=== PATIENT | male | born 1945 | race Two or more races ===

== ENCOUNTER 2017-11-14 18:26 | Inpatient (IN) | payer MEDICARE ==
[~2017-11-14] VITALS: Ht 167.6 cm; Wt 99.8 kg
[~2017-11-14 18:26] MED LIST: CEFAZOLIN 1 G VIAL IV ONE; DEXAMETHASONE SOD PHOSPHATE 4 MG INJ IV ONE; FENTANYL IV ONE; GLYCOPYRROLATE 0.2 MG/ML VIAL IV ONE; LIDOCAINE-MPF 2% 5 ML VIAL MC ONE; NEOSTIGMINE METHYLSULFATE 10 MG/10 ML VIAL IV ONE; ONDANSETRON 4 MG/2 ML VIAL IV ONE; PROPOFOL 1,000 MG/100 ML BOTTLE IV ONE; [UNRECOGNIZED DRUG - OTHER] MC ONE
[2017-11-14] MEDS ORDERED: PANTOPRAZOLE SODIUM 40 MG VIAL IV ONE (18:44)
[2017-11-14] MEDS ORDERED: MORPHINE SULFATE 2 MG/1 ML DISP.SYRIN IV ONE ×2 (18:45→20:45)
[2017-11-14] MEDS ORDERED: ONDANSETRON IV *ER 4 MG/2 ML VIAL IV ONE (18:45)
[2017-11-14] MEDS ORDERED: IV NS 1000 ML 1,000 ML IV ONE (18:45)
[2017-11-14] MEDS ORDERED: PANTOPRAZOLE SODIUM 40 MG VIAL ONE (19:05)
[2017-11-14] MEDS ORDERED: ONDANSETRON 4 MG/2 ML VIAL ONE (19:05)
[2017-11-14] MEDS ORDERED: MORPHINE SULFATE 2 MG/1 ML DISP.SYRIN ONE ×2 (19:06→20:54)
--- NOTE | 2017-11-14 19:10 | NUR ---
BIB [facility] for trip and fall. Per [facility] he tripped on a parking block. Per [employer] and per pt and family, pt is intoxicated... He is on a monitor. IV placed, labs drawn.
[2017-11-14 19:14] LABS: BASOPHILS % (AUTO) 0.6 % (0.0-2.0); EOSINOPHILS # (AUTO) 0.1 K/uL (0.0-0.7); EOSINOPHILS % (AUTO) 1.4 % (0.0-7.0); HEMATOCRIT 43.8 % (36.7-47.1); LYMPHOCYTES # (AUTO) 1.7 K/uL (20.0-40.0); LYMPHOCYTES % (AUTO) 25.5 % (20.5-51.5); MEAN CORPUSCULAR HEMOGLOBIN 34.6 uug (23.8-33.4); MEAN CORPUSCULAR HGB CONC 34 g/dL (32.5-36.3); MONOCYTES # (AUTO) 0.5 K/uL (2.0-10.0); MONOCYTES % (AUTO) 7.2 % (0.0-11.0); NEUTROPHILS # (AUTO) 4.5 K/uL (1.8-8.9); NEUTROPHILS % (AUTO) 65.3 % (38.5-71.5); PLATELET COUNT (AUTO) 223 K/uL (152-348); RED BLOOD CELL COUNT(AUTO) 4.34 MIL/uL (4.06-5.63); WHITE BLOOD COUNT (AUTO) 6.8 K/uL (3.6-10.2)
--- NOTE | 2017-11-14 19:14 | NUR ---
REPORT TAKEN FROM CANDIE MENDEZ. ASSUMING PT CARE AT THIS TIME.
--- NOTE | 2017-11-14 19:14 | NUR ---
handoff report given Idania SCHREIBER
[2017-11-14 19:21] LABS: CARBON DIOXIDE 22 mmol/L (21-32); CHLORIDE 103 mmol/L (98-107); CREATININE 0.7 mg/dL (0.6-1.3); GLUCOSE 121 mg/dL (74-106); UREA NITROGEN, BLOOD 8 mg/dL (7-18)
[2017-11-14 19:27] LABS: ALANINE AMINOTRANSFERASE 28 U/L (16-63); ALKALINE PHOSPHATASE 60 U/L (50-136); ASPARTATE AMINOTRANSFERASE 29 U/L (15-37); BILIRUBIN,TOTAL 0.3 mg/dL (0.2-1.0); ETHANOL 230 MG/DL (0-0); TOTAL PROTEIN, SERUM 7.3 g/dL (6.4-8.2)
[2017-11-14 19:28] LABS: CREATINE KINASE, TOTAL 81 U/L (39-308)
--- NOTE | 2017-11-14 20:20 | NUR ---
Called Dr Gurpreet niño MD for consult as requested by Dr Thomson. Waiting for return call back
--- NOTE | 2017-11-14 20:49 | NUR ---
No call back from Dr Gurpreet espinoza MD. Repaged. Waiting for call back
[2017-11-14] MEDS ORDERED: IV NS 1000 ML 1,000 ML IV PRN (21:00)
--- NOTE | 2017-11-14 21:23 | NUR ---
DR IZAGUIRRE SPEAKING W/ PASQUAL REGARDING PT ADMISSION.
--- NOTE | 2017-11-14 21:30 | NUR ---
REPORT GIVEN TO CANDIE HERNANDEZ.
[2017-11-14] MEDS ORDERED: MAGNESIUM HYDROXIDE 30 ML LIQUID UDC PO PRN (22:00)
[2017-11-14] MEDS ORDERED: Z GUARD REMEDY PASTE 57 GM TUBE TOP PRN (22:00)
[2017-11-14] MEDS ORDERED: ACETAMINOPHEN 325 MG TABLET PO PRN (22:00)
[2017-11-14] MEDS ORDERED: ONDANSETRON 4 MG/2 ML VIAL IV PRN (22:00)
[2017-11-14 22:10] VITALS: BP 173/88
--- NOTE | 2017-11-14 22:10 | NUR ---
Pt. admitted to tele, under care of Dr. Garg Belongs List completed
[2017-11-14 22:13] LABS: *BILIRUBIN,URIN NEGATIVE (NEGATIVE); *BLOOD, URINE NEGATIVE (NEGATIVE); *CLARITY,URINE CLEAR (CLEAR); *COLOR,URINE YELLOW (YELLOW); *KETONES,URINE NEGATIVE (NEGATIVE); *PROTEIN,URINE NEGATIVE (NEGATIVE); *UROBILINOGEN,URINE 0.2 E.U./dl (NORMAL); LEUKOCYTE ESTERASE ,URINE NEGATIVE (NEGATIVE); NITRITE, URINE NEGATIVE (NEGATIVE); UGLUCOSE NEGATIVE (NEGATIVE)
--- NOTE | 2017-11-14 22:15 | NUR ---
Patient arrived to unit as a new Tele admit with Dx of Right Ankle Fx under the care of Willie Murphy. Patient arrived in stable condition with no acute distress noted. On Tele monitor currently Sinus Rhythm HR of 92. Daughter with patient at the bedside. BP slightly elevated upon arrival at 173/88 due to RLE pain. Will reassess BP through shift. MATERNITY NURSE Yaya aware. Pertinent assessment completed upon arrival. Noted with right hand IV 22G running with IV NS at 75cc/hr. No signs of infiltration or swelling noted at IV Site. RLE is currently wrapped. Dressing is intact. Elevated RLE with pillow. Patient complaining of pain. Will medicate per MD order & reassess. Call light within reach of patient. Will continue to monitor through shift.
[2017-11-14 22:21] LABS: RBC,URINE 0-3 /HPF (0-3); SQUAMOUS EPITHELIAL CELL,UR FEW /HPF (NONE SEEN); WBC,URINE NONE SEEN /HPF (0-3)
[2017-11-14] MEDS ORDERED: hydrALAZINE HCL 20 MG/1 ML VIAL IV PRN (22:45)
[2017-11-14] MEDS: MORPHINE SULFATE 2 MG/1 ML DISP.SYRIN IV PRN (23:19)
[2017-11-15 00:02] VITALS: BP 174/84
[2017-11-15] MEDS: IV NS 1000 ML 1,000 ML IV PRN ×2 (00:04→08:16)
[2017-11-15] MEDS: MORPHINE SULFATE 2 MG/1 ML DISP.SYRIN IV PRN ×2 (03:27→08:16)
[2017-11-15 04:00] VITALS: BP 165/81
[2017-11-15 06:01] LABS: BASOPHILS # (AUTO) 0.1 K/uL (0.0-8.0); EOSINOPHILS # (AUTO) 0.1 K/uL (0.0-0.7); EOSINOPHILS % (AUTO) 0.8 % (0.0-7.0); HEMATOCRIT 42.3 % (36.7-47.1); HEMOGLOBIN 14.5 g/dL (12.5-16.3); LYMPHOCYTES # (AUTO) 2.1 K/uL (20.0-40.0); LYMPHOCYTES % (AUTO) 26.1 % (20.5-51.5); MEAN CORPUSCULAR HEMOGLOBIN 34.8 uug (23.8-33.4); MEAN CORPUSCULAR HGB CONC 34 g/dL (32.5-36.3); MEAN CORPUSCULAR VOLUME 101.1 fL (73.0-96.2); MONOCYTES # (AUTO) 0.7 K/uL (2.0-10.0); MONOCYTES % (AUTO) 8.2 % (0.0-11.0); NEUTROPHILS # (AUTO) 5.1 K/uL (1.8-8.9); NEUTROPHILS % (AUTO) 63.9 % (38.5-71.5); PLATELET COUNT (AUTO) 228 K/uL (152-348); RED BLOOD CELL COUNT(AUTO) 4.19 MIL/uL (4.06-5.63)
[2017-11-15 06:26] LABS: CARBON DIOXIDE 24 mmol/L (21-32); CHLORIDE 103 mmol/L (98-107); CHOLESTEROL 169 mg/dL (<200); CREATININE 0.7 mg/dL (0.6-1.3); GLUCOSE 97 mg/dL (74-106); HDL CHOLESTEROL 65 mg/dL (40-60); MAGNESIUM 1.9 mg/dL (1.8-2.4); PHOSPHOROUS 3.1 mg/dL (2.5-4.9); POTASSIUM 4.2 mmol/L (3.5-5.1); TRIGLYCERIDES 71 MG/DL (30-150); UREA NITROGEN, BLOOD 5 mg/dL (7-18)
[2017-11-15] MEDS ORDERED: ENALAPRILAT DIHYDRATE 1.25 MG/1 ML VIAL IV PRN ×2 (06:30→07:45)
--- NOTE | 2017-11-15 06:41 | NUR ---
BP of patient continued to be elevated 178/85 with a HR of 86. Alexys Jin MD because Hydralazine PRN is unavailable per nursing telephone supervisor. New order for Enalapril 5mg IVP every 6 hours PRN. Administered Med to patient. Patient is Sinus rhythm on the Tele monitor. No acute distress noted through shift. All needs attended to promptly. Pain management provided. All meds given per MD order. Call light within reach. will endorse to day shift nurse.
[2017-11-15 06:44] LABS: THYROID STIMULATING HORMONE 0.804 mIU/mL (0.358-3.740)
--- NOTE | 2017-11-15 07:05 | NUR ---
Received report from cisco administrator nurse, patient in bed awake, reports pain in right ankle. Bed in low position, side rails up x2, call light in reach.
[2017-11-15] MEDS ORDERED: hydrALAZINE HCL 20 MG/1 ML VIAL IV PRN (07:45)
[2017-11-15] MEDS: PANTOPRAZOLE SODIUM 40 MG VIAL IV SCH (08:12)
[2017-11-15] MEDS ORDERED: LORAZEPAM 2 MG/1 ML VIAL IV PRN (09:00)
[2017-11-15 11:42] VITALS: BP 159/75
[2017-11-15] MEDS: MORPHINE SULFATE 4 MG/1 ML DISP.SYRIN IV PRN ×2 (12:09→18:58)
--- NOTE | 2017-11-15 12:30 | NUR ---
Patient is alert and oriented but requested that daughter signs consent paper work for surgery as his vision is diminished.
[2017-11-15] MEDS ORDERED: POLYMYXIN B SULFATE 500,000 UNITS, BACITRACIN 50,000 UNITS, NORMAL SALINE 20 ML MC ONE ×3 (14:30)
--- NOTE | 2017-11-15 15:19 | NUR ---
Patient was taken to surgery by surgical team.
[2017-11-15] MEDS ORDERED: FENTANYL CITRATE 100 MCG/2 ML AMPUL ONE ×2 (16:27→16:57)
[2017-11-15] MEDS ORDERED: CEFAZOLIN 50 ML IV ONE (16:41)
[2017-11-15] MEDS ORDERED: IV D5W-0.45% NS +20 KCL 1,000 ML IV ONE (16:42)
[2017-11-15] MEDS ORDERED: hydrALAZINE HCL 20 MG/1 ML VIAL ONE (16:49)
[2017-11-15] MEDS ORDERED: HYDROCODONE/APAP 10-325 MG TABLET PO PRN (17:15)
[2017-11-15] MEDS ORDERED: MORPHINE SULFATE 4 MG/1 ML DISP.SYRIN IV PRN (17:15)
--- NOTE | 2017-11-15 17:43 | NUR ---
Patient returned from surgery, vitals recorded, orders reviewed. Patient reports pain, asked patient if he can wait a while longer as he received a great deal of meds in surgery, patient agreed.
[2017-11-15 18:20] VITALS: BP 142/62
--- NOTE | 2017-11-15 19:30 | NUR ---
Received patient in stable condition with no acute distress noted. Patient had an ORIF of the right ankle with Dr. Vázquez. Pertinent assessment completed. BP elevated at beginning of shift. Will reassess & administer Meds per MD order. Noted with right hand IV site running with IV fluids D5 1/2 NS K 20 meqs. No signs of infiltration or swelling at IV site. On ATB therapy for postop prophylaxis. Patient on O2 via NC at 2L. Denies SOB. Sinus Rhythm on the Tele monitor. Call light within reach. Will continue to monitor through shift.
[2017-11-15 20:00] VITALS: BP 166/81
[2017-11-15] MEDS: ENALAPRILAT DIHYDRATE 1.25 MG/1 ML VIAL IV PRN (23:44)
[2017-11-16] VITALS (7 sets, daily range): BP systolic 149–194; BP diastolic 55–101
[2017-11-16] MEDS ORDERED: CEFAZOLIN 1 G VIAL ONE (00:29)
[2017-11-16] MEDS: CEFAZOLIN 1 G in PREMIXED 1 EACH IV SCH ×2 (00:46→08:38)
[2017-11-16] MEDS: MORPHINE SULFATE 4 MG/1 ML DISP.SYRIN IV PRN ×3 (06:12→23:28)
--- NOTE | 2017-11-16 06:30 | NUR ---
Patient stable through shift. No acute distress noted. Pain management provided. Right ankle dressing intact & dry. RLE kept elevated. BP continues to be elevated. Administered IV Enalapril per MD order. Compliant with care. All needs attended to promptly. Medications administered per MD order. Call light within reach. Will endorse to day shift nurse.
[2017-11-16 06:34] LABS: BASOPHILS % (AUTO) 0.1 % (0.0-2.0); HEMATOCRIT 45.9 % (36.7-47.1); HEMOGLOBIN 15.7 g/dL (12.5-16.3); LYMPHOCYTES # (AUTO) 1.2 K/uL (20.0-40.0); LYMPHOCYTES % (AUTO) 12.6 % (20.5-51.5); MEAN CORPUSCULAR HEMOGLOBIN 34.2 uug (23.8-33.4); MEAN CORPUSCULAR HGB CONC 34 g/dL (32.5-36.3); MEAN CORPUSCULAR VOLUME 100.2 fL (73.0-96.2); MONOCYTES # (AUTO) 0.7 K/uL (2.0-10.0); MONOCYTES % (AUTO) 7.6 % (0.0-11.0); NEUTROPHILS # (AUTO) 7.9 K/uL (1.8-8.9); NEUTROPHILS % (AUTO) 79.7 % (38.5-71.5); PLATELET COUNT (AUTO) 242 K/uL (152-348); RED BLOOD CELL COUNT(AUTO) 4.58 MIL/uL (4.06-5.63); WHITE BLOOD COUNT (AUTO) 9.9 K/uL (3.6-10.2)
[2017-11-16 06:44] LABS: CARBON DIOXIDE 28 mmol/L (21-32); CHLORIDE 102 mmol/L (98-107); CREATININE 0.9 mg/dL (0.6-1.3); GLUCOSE 140 mg/dL (74-106); POTASSIUM 4.7 mmol/L (3.5-5.1); UREA NITROGEN, BLOOD 7 mg/dL (7-18)
--- NOTE | 2017-11-16 07:37 | NUR ---
Patient awake/alert/oriented x4. Right ankle elevated on pillows. no complaints of pain at this time verbalized by patient. IVF running. Elevated BP, will monitor and manage throughout shift. stable condition, no s/s of distress. bed alarm on, call light within reach.
[2017-11-16] MEDS: PANTOPRAZOLE SODIUM 40 MG VIAL IV SCH (08:00)
[2017-11-16] MEDS: POTASSIUM CHLORIDE 20 MEQ in IV D5 1/2 NS 1000 ML 1,000 ML IV PRN (08:38)
[2017-11-16] MEDS ORDERED: AMLODIPINE 5 MG TABLET PO SCH (09:00)
[2017-11-16] MEDS: ENALAPRILAT DIHYDRATE 1.25 MG/1 ML VIAL IV PRN (09:23)
--- NOTE | 2017-11-16 09:25 | NUR ---
ADMINISTERED VASOTEC 1.25 MG IVP FOR INCREASED BP 172/80. SR ON TELEMETRY. WILL MONITOR BP CLOSELY.
[2017-11-16] MEDS ORDERED: BISACODYL 10 MG SUPP.RECT RC PRN (13:45)
[2017-11-16] MEDS ORDERED: MIRALAX 17 GM POWD.PACK PO PRN (13:45)
[2017-11-16] MEDS ORDERED: AMLODIPINE 5 MG TABLET PO ONE (14:15)
--- NOTE | 2017-11-16 20:30 | NUR ---
Pt's A/A/O x4,S/P right ankle ORIF on 11/15/17,elevated right leg with pillows,ice pack's applied to the right leg site;no neuro deficit's seen noted.pt's able to tolerate regular diet as order but still c/o constipation for 3 days;Colace's given to pt at this time;educated to pt and translated by lela/pt's daughter;pt verbalized understanding noted.maintained adequate functional and I/O.kept comfort.call-light within reach.
[2017-11-16] MEDS ORDERED: DOCUSATE SODIUM 100 MG CAPSULE PO SCH (21:00)
[2017-11-17 04:41] VITALS: BP 168/73
[2017-11-17] MEDS: ENALAPRILAT DIHYDRATE 1.25 MG/1 ML VIAL IV PRN ×2 (05:51→16:12)
[2017-11-17] MEDS: POTASSIUM CHLORIDE 20 MEQ in IV D5 1/2 NS 1000 ML 1,000 ML IV PRN (05:53)
--- NOTE | 2017-11-17 06:00 | NUR ---
PT SLEPT WELL DURING OF THE NIGHT,NO DISTRESS NOTED IN THE SHIFT.PAIN'S CONTROLLED WITH MORPHINE DUE TO PT REFUSED TO TAKE PAIN PILL.KEPT COMFORT.CALL-LIGHT WITHIN REACH.
[2017-11-17] MEDS ORDERED: PANTOPRAZOLE SODIUM 40 MG TABLET.DR PO SCH (07:00)
--- NOTE | 2017-11-17 07:26 | NUR ---
patient resting comfortably in bed. no signs of distress. continues to have elevated BP- will monitor and manage. ivf running. possible D/C today. pain management will be provided. bed in locked/low position, side rails up x2, bed alarm on, call light within reach.
[2017-11-17 07:38] VITALS: BP 162/79
[2017-11-17] MEDS: MORPHINE SULFATE 4 MG/1 ML DISP.SYRIN IV PRN (08:56)
[2017-11-17] MEDS ORDERED: AMLODIPINE 5 MG TABLET PO SCH (09:00)
[2017-11-17] MEDS ORDERED: AMLODIPINE 10 MG TABLET PO SCH (09:00)
[2017-11-17 11:24] VITALS: BP 146/59
[2017-11-17 15:24] VITALS: BP 160/62
[2017-11-17 16:58] VITALS: BP 150/71
--- NOTE | 2017-11-17 19:20 | NUR ---
Receive patient lying in bed. Several family member present at bedside. AAOX4. In no acute distress. Denies any pain or SOB. Awaiting hand picker by EMT to be discharge to [facility].
--- NOTE | 2017-11-17 19:58 | NUR ---
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 Report given to stoker installation mechanic. patient BP high at this time at 176/82. MACHINE MADE SHOE UNIT WORKER Yaya made aware and ordered Clonidine once. Ordered carried out. Will recheck BP before discharge.
[2017-11-17 20:00] VITALS: BP 164/74
[2017-11-17] MEDS ORDERED: CLONIDINE HCL 0.1 MG TABLET PO ONE (20:00)
--- NOTE | 2017-11-17 20:40 | NUR ---
Patient latest BP 168/78. Telephone call to [facility]/Shannon and made aware of patient latest BP and VS as follow: HR 78, RR 16, O2 sat 96% and states understanding. AAOX4. In no acute distress. Patient discharge to [facility], picked up by 2 paramedics via gurney also accompanied by family member.
== END 2017-11-17 20:40 | DRG 493 ==
LOC: ER 18:27 → TELE 21:36 → MED 11-16 14:50
PROVIDERS: ADMIT Hospitalist; ATTEND Hospitalist
PROC: 2W3QX1Z Immobilization of Right Lower Leg using Splint (ICD-10-PCS; 2017-11-14)
PROC: 0SSF0ZZ Reposition Right Ankle Joint, Open Approach (ICD-10-PCS; 2017-11-15)
PROC: 0QSJ04Z Reposition Right Fibula with Internal Fixation Device, Open Approach (ICD-10-PCS; principal; 2017-11-15 15:36)
DX: S82.431A Displaced oblique fracture of shaft of right fibula, initial encounter for closed fracture (principal); E44.1 Mild protein-calorie malnutrition; I42.6 Alcoholic cardiomyopathy; E87.1 Hypo-osmolality and hyponatremia; W01.0XXA Fall on same level from slipping, tripping and stumbling without subsequent striking against object, initial encounter; Y92.481 Parking lot as the place of occurrence of the external cause; S93.04XA Dislocation of right ankle joint, initial encounter; M77.31 Calcaneal spur, right foot; I11.9 Hypertensive heart disease without heart failure; E66.01 Morbid (severe) obesity due to excess calories; Z68.35 Body mass index [BMI] 35.0-35.9, adult; Z71.3 Dietary counseling and surveillance; H26.9 Unspecified cataract; Z91.14 Patient's other noncompliance with medication regimen; F10.220 Alcohol dependence with intoxication, uncomplicated; Y90.7 Blood alcohol level of 200-239 mg/100 ml; S50.811A Abrasion of right forearm, initial encounter; E83.51 Hypocalcemia; R94.31 Abnormal electrocardiogram [ECG] [EKG]; R73.9 Hyperglycemia, unspecified; G47.33 Obstructive sleep apnea (adult) (pediatric)
CPT/HCPCS: 36415; 70030-TC; 71045; 72170; 73590; 73600; 73620; 76000; 82746; 83735; 84100; 84443; 85025; 85610; 93005; 93307; 97116; 97165; 97530; A4663; C9113; G0480; J0360; J0690; J1100; J2270; J2405; J2710; J3010; J3480; J3490; J3590; J7030